=== PATIENT | female | born 1955 | race Caucasian/White ===

== ENCOUNTER 2019-02-11 15:49 | Outpatient (REF) | payer BC, SELFPAY ==
[2019-02-11 22:46] LABS: Anion Gap 6.9 mmol/L (3-11); BUN 20 mg/dL (7-18); CO2 33.1 mmol/L (21.0-32.0); CREATININE 0.95 mg/dL (0.55-1.02); Calcium 9.3 mg/dL (8.5-10.1); Chloride 103 mmol/L (98-107); Estimated GFR 59.22 (mL/min/1.73m2); Glucose 69 mg/dL (70-100); Potassium 3.8 mmol/L (3.5-5.1); Sodium 143 mmol/L (136-145)
== END 2019-02-11 16:09 ==
LOC: NCHCN 15:49
PROVIDERS: PCP Nurse Practitioner Family; Visit Provider Nurse Practitioner Family
DX: I10 Essential (primary) hypertension (principal)
CPT/HCPCS: 80048

== ENCOUNTER 2019-03-19 08:11 | Outpatient (REF) | payer BC, SELFPAY ==
[2019-03-19 22:25] LABS: Anion Gap 7.2 mmol/L (3-11); BUN 15 mg/dL (7-18); CO2 32.8 mmol/L (21.0-32.0); CREATININE 1.06 mg/dL (0.55-1.02); Calcium 9.7 mg/dL (8.5-10.1); Chloride 101 mmol/L (98-107); Estimated GFR 52.19 (mL/min/1.73m2); Glucose 71 mg/dL (74-106); Potassium 3.6 mmol/L (3.5-5.1); Sodium 141 mmol/L (136-145)
== END 2019-03-19 08:31 ==
LOC: NCHCN 08:11
PROVIDERS: PCP Nurse Practitioner Family; Visit Provider Nurse Practitioner Family
DX: I10 Essential (primary) hypertension (principal)
CPT/HCPCS: 80048

== ENCOUNTER 2019-05-08 14:17 | Outpatient (REF) | payer OTHER, SELFPAY ==
[2019-05-08 22:05] LABS: COMMENT (LAB VIEW ONLY) 26.98 mg/dL; Microalb ug/mg Crea 8.5 ug/mg Cr
[2019-05-08 22:40] LABS: Anion Gap 7.5 mmol/L (3-11); BUN 15 mg/dL (7-18); CO2 33.5 mmol/L (21.0-32.0); CREATININE 0.85 mg/dL (0.55-1.02); Chloride 101 mmol/L (98-107); Glucose 91 mg/dL (74-106); Potassium 3.6 mmol/L (3.5-5.1); Sodium 142 mmol/L (136-145)
== END 2019-05-08 14:37 ==
LOC: NCHCN 14:17
PROVIDERS: Nurse Practitioner Family; PCP Nurse Practitioner Family; Visit Provider Nurse Practitioner Family
DX: I10 Essential (primary) hypertension (principal); E16.2 Hypoglycemia, unspecified
CPT/HCPCS: 80048; 82043; 82570

== ENCOUNTER 2020-03-02 14:28 | Outpatient (REF) | payer MEDICARE, BC, SELFPAY ==
--- NOTE | 2020-03-02 08:30 | PAPFT_PTH ---
PATIENT: Yamile Franco LOC: [facility] U#:[id number] AGE/SX: 64/F ROOM: RE03/02/[address]: Annabel Mckeon : 1955 BED: DIS: 03/02/2020 SPEC #: [id number] RECD: 03/03/20 12:55 STATUS: ALESSANDRA REJ Carlos #: [id number] GREGORIA: 03/02/20 08:[address]: Annabel Child DEPT: [facility] Cytology RECD BY: Araceli Lawrence ENTERED: 03/03/20 12:55 SP TYPE: PAPFT OTHR DR: Ifrah Cope Tissues: 1 - CX/ENDOCX FOR PAP SMEARS Procedures: PAP THIN PREP/[facility] Screening HPV DNA PROBE Comments: [id number] ([facility])
[2020-03-02 21:01] LABS: Anion Gap 7.1 mmol/L (3-11); BUN 16 mg/dL (7-18); CO2 31.9 mmol/L (21.0-32.0); CREATININE 1.07 mg/dL (0.55-1.02); Calcium 9.9 mg/dL (8.5-10.1); Calculated LDL 134 mg/dL (<100); Chloride 100 mmol/L (98-107); Cholesterol 219 mg/dL (<200); Estimated GFR 51.47 (mL/min/1.73m2); Glucose 78 mg/dL (74-106); HDL Cholesterol 68 mg/dL (40-60); Potassium 4.1 mmol/L (3.5-5.1); Sodium 139 mmol/L (136-145); Triglyceride 89 mg/dL (<150)
== END 2020-03-02 14:48 ==
LOC: NCHCN 14:28
PROVIDERS: PCP Nurse Practitioner Family; Visit Provider Nurse Practitioner Family
DX: I10 Essential (primary) hypertension; E78.5 Hyperlipidemia, unspecified; Z12.4 Encounter for screening for malignant neoplasm of cervix; Z11.51 Encounter for screening for human papillomavirus (HPV)
CPT/HCPCS: 80048; 80061; 88142; 87624

== ENCOUNTER 2021-03-14 22:04 | Outpatient (REF) | payer MEDICARE, SELFPAY ==
[2021-03-14 22:17] LABS: ALT 33 U/L (14-59); AST 26 U/L (15-37); Albumin 4.1 g/dL (3.4-5.0); Alkaline Phosphatase 63 U/L (46-116); Anion Gap 6.7 mmol/L (3-11); BUN 12 mg/dL (7-18); Bilirubin, Total 0.3 mg/dL (0.2-1.0); CO2 34.3 mmol/L (21.0-32.0); Calcium 9.6 mg/dL (8.5-10.1); Calculated LDL 115 mg/dL (<100); Chloride 101 mmol/L (98-107); Cholesterol 195 mg/dL (<200); Estimated GFR 55.47 (mL/min/1.73m2); Glucose 91 mg/dL (74-106); HDL Cholesterol 60 mg/dL (40-60); Potassium 3.9 mmol/L (3.5-5.1); Sodium 142 mmol/L (136-145); Total Protein 7.5 g/dL (6.4-8.2); Triglyceride 104 mg/dL (<150)
== END 2021-03-14 22:05 | disposition home or self-care (01) ==
LOC: NCHCN 22:04
PROVIDERS: PCP Nurse Practitioner Family; Visit Provider Nurse Practitioner Family
DX: I10 Essential (primary) hypertension (principal); E78.5 Hyperlipidemia, unspecified
CPT/HCPCS: 80053; 80061

== ENCOUNTER 2021-08-30 16:13 | Outpatient (REF) | payer MEDICARE, OTHER, SELFPAY ==
[2021-08-30 14:44] LABS: HCT 39.8 % (36.0-46.0); HGB 13.3 g/dL (11.2-15.7); MCH 32.4 pg (27.0-33.0); MCHC 33.4 % (32.0-36.0); MCV 97 fL (80-95); MPV 9.6 fL (8.0-11.0); Platelet Count 273 10^3/uL (130-400); RDW 11.8 % (11.7-14.6); WBC 6.25 10^3/uL (4.4-10.8)
[2021-08-30 15:07] LABS: ALT 26 U/L (14-59); AST 22 U/L (15-37); Alkaline Phosphatase 65 U/L (46-116); BUN 15 mg/dL (7-18); Bilirubin, Total 0.5 mg/dL (0.2-1.0); Calcium 9.3 mg/dL (8.5-10.1); Calculated LDL 108 mg/dL (<100); Chloride 101 mmol/L (98-107); Cholesterol 193 mg/dL (<200); Estimated GFR 55.47 (mL/min/1.73m2); Glucose 95 mg/dL (74-106); HDL Cholesterol 66 mg/dL (40-60); Potassium 3.9 mmol/L (3.5-5.1); Sodium 139 mmol/L (136-145); TSH 1.58 uIU/mL (0.36-3.74); Total Protein 7.2 g/dL (6.4-8.2); Triglyceride 97 mg/dL (<150)
== END 2021-08-30 16:14 | disposition home or self-care (01) ==
LOC: NCHCN 16:13
PROVIDERS: PCP Nurse Practitioner Family; Visit Provider Nurse Practitioner Family
DX: E78.5 Hyperlipidemia, unspecified (principal); I10 Essential (primary) hypertension; Z13.29 Encounter for screening for other suspected endocrine disorder
CPT/HCPCS: 80053; 80061; 85027; 84443

== ENCOUNTER 2022-09-14 14:56 | Outpatient (REF) | payer MEDICARE, OTHER, SELFPAY ==
[2022-09-14 21:12] LABS: Anion Gap 5.5 mmol/L (3-11); BUN 18 mg/dL (7-18); CO2 34.5 mmol/L (21.0-32.0); CREATININE 1.3 mg/dL (0.55-1.02); Calcium 9.8 mg/dL (8.5-10.1); Chloride 101 mmol/L (98-107); Estimated GFR 45.07 (mL/min/1.73m2); Glucose 153 mg/dL (74-106); Potassium 3.6 mmol/L (3.5-5.1); Sodium 141 mmol/L (136-145)
== END 2022-09-14 14:57 | disposition home or self-care (01) ==
LOC: NCHCN 14:56
PROVIDERS: PCP Nurse Practitioner Family; Visit Provider Nurse Practitioner Family
DX: I10 Essential (primary) hypertension (principal)
CPT/HCPCS: 80048

== ENCOUNTER 2023-03-19 11:04 | Outpatient (REF) | payer MEDICARE, OTHER, SELFPAY ==
[2023-03-19 15:16] LABS: BUN 16 mg/dL (7-18); CREATININE 1.1 mg/dL (0.55-1.02); Calcium 9.6 mg/dL (8.5-10.1); Chloride 100 mmol/L (98-107); Estimated GFR 54.73 (mL/min/1.73m2); Glucose 60 mg/dL (74-106); Potassium 3.4 mmol/L (3.5-5.1); Sodium 137 mmol/L (136-145)
== END 2023-03-19 11:05 | disposition home or self-care (01) ==
LOC: NCHCN 11:04
PROVIDERS: PCP Nurse Practitioner Family; Visit Provider Nurse Practitioner Family
DX: I10 Essential (primary) hypertension (principal)
CPT/HCPCS: 80048

== ENCOUNTER 2024-03-28 14:53 | Outpatient (REF) | payer MEDICARE, OTHER, SELFPAY ==
[2024-03-28 15:40] LABS: HCT 40.7 % (36.0-46.0); HGB 13.6 g/dL (11.2-15.7); MCH 32.3 pg (27.0-33.0); MCHC 33.4 % (32.0-36.0); MCV 97 fL (80-95); MPV 9.7 fL (8.0-11.0); Platelet Count 265 10^3/uL (130-400); RBC 4.21 10^6/uL (3.93-5.22); RDW 12.3 % (11.7-14.6); RDW-SD 44.2 fL; WBC 5.55 10^3/uL (4.4-10.8)
[2024-03-28 15:58] LABS: ALT 30 U/L (14-59); AST 26 U/L (15-37); Alkaline Phosphatase 66 U/L (46-116); Anion Gap 8.3 mmol/L (3-11); BUN 13 mg/dL (7-18); Bilirubin, Total 0.69 mg/dL (0.2-1.0); CO2 31.7 mmol/L (21.0-32.0); CREATININE 1.1 mg/dL (0.55-1.02); Calcium 9.8 mg/dL (8.5-10.1); Calculated LDL 95 mg/dL (<100); Chloride 100 mmol/L (98-107); Cholesterol 187 mg/dL (<200); Estimated GFR 54.39 (mL/min/1.73m2); Glucose 86 mg/dL (74-106); HDL Cholesterol 79 mg/dL (40-60); Potassium 3.6 mmol/L (3.5-5.1); Sodium 140 mmol/L (136-145); Total Protein 7.8 g/dL (6.4-8.2); Triglyceride 67 mg/dL (<150)
== END 2024-03-28 14:54 | disposition home or self-care (01) ==
LOC: NCHCN 14:53
PROVIDERS: PCP Nurse Practitioner Family; Visit Provider Nurse Practitioner Family
DX: R53.83 Other fatigue (principal)
CPT/HCPCS: 80053; 80061; 85027; 84443

== ENCOUNTER 2025-03-25 09:59 | Outpatient (REF) | payer MEDICARE, OTHER, SELFPAY ==
[2025-03-25 14:51] LABS: Anion Gap 8.7 mmol/L (3-11); BUN 12 mg/dL (9-23); CO2 31.3 mmol/L (20.0-31.0); Calcium 9.6 mg/dL (8.3-10.6); Chloride 100 mmol/L (98-107); Glucose 94 mg/dL (74-106); Potassium 3.6 mmol/L (3.5-5.1); Sodium 140 mmol/L (136-145)
== END 2025-03-25 10:00 | disposition home or self-care (01) ==
LOC: NCHCN 09:59
PROVIDERS: PCP Nurse Practitioner Family; Visit Provider Nurse Practitioner Family
DX: I10 Essential (primary) hypertension (principal)
CPT/HCPCS: 80048

== ENCOUNTER 2025-04-06 13:31 | Outpatient (REF) | payer MEDICARE, OTHER, SELFPAY ==
[2025-04-06 14:43] LABS: ESR 6 mm/hr (0-30)
[2025-04-06 14:59] LABS: C-Reactive Protein < 0.50 mg/dL (<=0.50)
== END 2025-04-06 13:32 | disposition home or self-care (01) ==
LOC: NCHCN 13:31
PROVIDERS: PCP Nurse Practitioner Family; Visit Provider Nurse Practitioner Family
DX: R51.9 Headache, unspecified (principal)
CPT/HCPCS: 85652; 86140